=== PATIENT | male | born 1950 | race Caucasian/White ===

== ENCOUNTER → 2017-01-23 12:53 | Outpatient (CLI) | payer MEDICARE ==
[~2017-01-23 12:53] MED LIST: ALDACTONE25 MG PO; BAYER CHEWABLE81 MG PO; CORDARONE200 MG PO; COREG6.25 MG PO; FUROSEMIDE40 MG PO; LIPITOR40 MG PO; OMEGA 3 FISH OI1 CAP PO; ZOFRAN4 MG PO
[2017-03-25 12:13] VITALS: BMI 18.8
== END | disposition home or self-care (01) ==
LOC: D.CT 12:53
DX: M54.6 Pain in thoracic spine (principal)

== ENCOUNTER 2017-03-18 14:38 | Emergency (ER) | payer MEDICARE ==
[2017-03-18 15:45] LABS: BASOPHILS 0.2 % (0-2); EOSINOPHILS 2.1 % (0-7); HEMATOCRIT 43.1 % (42.0-54.0); HEMOGLOBIN 14.9 g/dL (13.5-17.5); IMMATURE GRANULOCYTES 0.2 % (0-5); LYMPHOCYTES 16.6 % (15-50); MCH 32.3 pg (26.0-34.0); MCHC 34.6 g/dL (31.0-37.0); MCV 93.5 fL (80.0-100.0); MEAN PLATELET VOLUME 9.5 fL (7.4-10.4); MONOCYTES 7.7 % (2-11); NEUTROPHILS 73.2 % (40-80); PLATELET COUNT 128 10x3/uL (130-400); RBC 4.61 10x6/uL (4.20-6.10); RDW 12.5 % (11.5-14.5); WBC 8.8 10x3/uL (4.8-10.8)
[2017-03-18 15:58] LABS: ALBUMIN 3.4 g/dL (3.4-5.0); ALKALINE PHOSPHATASE 102 U/L (46-116); ALT (SGPT) 27 U/L (10-68); CALC OSMOLALITY 283 mosm/kg (275-300); CALCIUM 8.8 mg/dL (8.5-10.1); CARBON DIOXIDE 30.7 mmol/L (21.0-32.0); CHLORIDE - SERUM 105 mmol/L (98-107); CREATININE - SERUM 1.4 mg/dL (0.6-1.3); GLUCOSE 108 mg/dL (74-106); POTASSIUM - SERUM 4.3 mmol/L (3.5-5.1); PROTEIN - SERUM 6.1 g/dL (6.4-8.2); SODIUM 141 mmol/L (136-145); UREA NITROGEN 19 mg/dL (7-18); eGFR NON AFRICAN AMERICAN 54 mL/min (90-120)
[2017-03-18 16:09] LABS: CKMB 0.9 U/L (0.0-3.6); CREATINE KINASE 58 UL (21-232); MAGNESIUM - SERUM 2.1 mg/dL (1.8-2.4)
[2017-03-18 16:11] LABS: TROPONIN-I < 0.017 ng/mL (0.000-0.060)
[2017-03-25 12:13] VITALS: BMI 18.8
== END 2017-03-18 16:52 | disposition home or self-care (01) ==
LOC: D.ER 14:38
PROVIDERS: Family Medicine
DX: I49.9 Cardiac arrhythmia, unspecified (principal); Z95.0 Presence of cardiac pacemaker

== ENCOUNTER 2017-03-25 11:48 | Outpatient (CLI) | payer MEDICARE ==
[~2017-03-25] VITALS: Ht 180.3 cm; Wt 61.4 kg
--- NOTE | ~2017-03-25 | HEMODYNAMI ---
PATIENT:INDIA SKY MEDICAL RECORD: [id number] : 50 LOCATION:DTEOFILO ADMISSION DATE: 03/25/17 Generatedon:03/25/201714:51 Patient name: INDIA SKY Patient #: [id number] SSN: : 1950 Date of study: 03/25/2017 Page: Of Hemodynamic Procedure Report Patient Data Patient Demographics Procedure consent was obtained First Name: INDIA Gender: Male Last Name: ASYA : 1950 [facility] Initial: LELA Age: 66 year(s) Patient #: [id number] Race: Unknown Additional ID: [id number] Contact details Address: [address] [place] [address] State: [place] City: [place] Zip code: [address] Past Medical History Allergies Allergen Reaction Date Comments Reported Other allergy 03/25/2017 Ambien Admission Admission Data Admission Date: 03/25/2017 Admission Time: 11:48 Height (in.): 72 BSA: 1.81 (m2) Height (cm.): 182.88 BMI: 18.44 (kg/m2) Weight (lbs.): 136 Weight (kg.): 61.69 Lab Results Lab Result Date: 03/25/2017 Lab Result Time: 0:00 Biochemistry Name Units Result Min Max BUN mg/dl 24 --(----)-* 7 18 Creatinine mg/dl 1.7 --(----)-* 0.6 1.3 Procedure Procedure Types Cath Procedure Diagnostic Procedure LHC LHC w/Coronaries Miscellaneous Procedures Moderate Sedation up to 15 minutes Procedure Description Procedure Date Procedure Date: 03/25/2017 Procedure Start Time: 14:29 Procedure End Time: 14:50 Procedure Staff Name Function Franki Feliciano MD Ordering physician Anmol Rosa MD Performing Physician Alma Finley RT Monitor Katelyn Hitchcock RT Scrub Aminata Simons RN Nurse Chang Lsia RN Computational Biologist Procedure Data Cath Procedure Fluoroscopy Diagnostic fluoroscopy Total fluoroscopy Time: 5.6 time: 5.6 min min Diagnostic fluoroscopy Total fluoroscopy dose: 682 dose: 682 mGy mGy Contrast Material Contrast Material Type Amount (ml) Isovue 300 100 Entry Location Entry Primary Successful Side Size Upsize Upsize Entry Closure Succes sful Closure Location (Fr) 1 (Fr) 2 (Fr) Remarks Device Remarks Femoral Right 5 Fr Exoseal artery Estimated blood loss: 10 ml Diagnostic catheters Device Type Used For End Catheter Placement MULTIPACK JL 4.0 5Fr Procedure catheter DIAGNOSTIC AL 1 5Fr Procedure catheter ([id number]) DIAGNOSTIC AR 2 MOD 5 Fr Procedure catheter ([id number]) MULTIPACK Pigtail 5 Fr Procedure catheter Procedure Complications No complications Procedure Medications Medication Administration Route Dosage 0.9% NaCl I.V. 100 ml/hr Oxygen NC 2 l/min Lidocaine 2% added to field 20 Heparin Flush Bag added to field 2 bags (1000units/500ml NS) Versed I.V. 1 mg Fentanyl I.V. 50 mcg Versed I.V. 1 mg Fentanyl I.V. 50 mcg Versed I.V. 0.5 mg Versed I.V. 1 mg Hemodynamics Rest BSA: 1.81 (m2) O2 Consumption: Estimated: 212.23 (ml/min) O2 Consumption indexed : Estimated:117.25 (ml/min/m) Heart Rate: 73 (bpm) Pressure Samples Time Site Value (mmHg) Purpose Heart Use Rate(bpm) 14:43 LV 115/-1,2 Snapshot 66 14:46 AO 113/63(83) Pullback 66 14:46 LV 118/1,4 Pullback 66 Gradients Valve Time Site 1 Site 2 Mean SEP/DFP Peak To Heart Use (mmHg) (sec/min) Peak Rate (mmHg) (bpm) Aortic 14:46 LV AO 5 13 5 66 118/1,4 113/63(83) Calculations Valve P-P Mean Valve Index Valve Source Name Gradient Area Flow (cm2) Aortic 5 5 5 5 Snapshots Pre Cath Intra NCS Post Cath Vital Signs Time Heart Resp SPO2 NIBP (mmHg) Rhythm Pain Sedation Rate (ipm) (%) Status Level (bpm) 14:09:43 68 12 98 119/84(101) NSR 0 (11) 10(A) , No pain 14:13:47 65 22 97 112/78(99) NSR 0 (11) 10(A) , No pain 14:17:51 62 16 97 115/74(86) NSR 0 (11) 10(A) , No pain 14:21:54 67 16 97 115/76(92) NSR 0 (11) 10(A) , No pain 14:25:58 64 14 97 122/76(91) NSR 0 (11) 10(A) , No pain 14:30:04 66 14 97 133/75(99) NSR 0 (11) 9(A) , No pain 14:34:14 63 15 98 119/73(91) NSR 0 (11) 9(A) , No pain 14:38:20 63 16 97 127/73(92) NSR 0 (11) 9(A) , No pain 14:42:31 66 14 97 117/65(81) NSR 0 (11) 9(A) , No pain 14:46:40 64 16 96 108/65(89) NSR 0 (11) 10(A) , No pain Medications Time Medication Route Dose Verified Delivered Reason Notes Effec tiveness by by 14:09:04 0.9% NaCl I.V. 100 Anmol Aminata used for ml/hr Moe Simons RN procedure 14:09:16 Oxygen NC 2 Anmol Aminata Per l/min Moe Simons RN physician 14:09:26 Lidocaine 2% added 20ml Anmol Anmol used for to vial Moe Rosa MD procedure field 14:09:34 Heparin Flush added 2 Anmol Anmol used for Bag to bags Moe Rosa MD procedure (1000units/500ml field NS) 14:24:31 Versed I.V. 1 mg Anmol Aminata for Moe Simons RN sedation 14:24:42 Fentanyl I.V. 50 Anmol Aminata for josé manuel Simons RN sedation 14:28:41 Versed I.V. 1 mg Anmol Aminata for Moe Simons RN sedation 14:32:33 Fentanyl I.V. 50 Anmol Aminata for josé manuel Simons RN sedation 14:36:23 Versed I.V. 0.5 Anmol Aminata for mg Moe Simons RN sedation 14:43:22 Versed I.V. 1 mg Amnol Aminata for Moe Simons RN sedation Procedure Log Time Note 13:59:05 Patient Height : 72 inches 13:59:11 Patient Weight : 136 lbs 13:59:53 Diagnostic Cath status Elective 13:59:55 Chang Lisa RN sent for patient. Start room use. 13:59:57 Time tracking: Regular hours 14:00:18 Plan of Care:Hemodynamics will remain stable., Cardiac rhythm will remain stable., Comfort level will be maintained., Respiratory function will remain adequate., Patient/ family verbilizes understanding of procedure., Procedure tolerated without complication., Recovers from procedure without complications.. 14:00:40 Patient received from Med II to CCL 2 Alert and oriented. Tansferred to table in Supine position. 14:00:41 Warm blankets applied, and giuseppe hugger turned on for patient comfort. 14:00:41 Correct patient and procedure confirmed by team. 14:00:44 Signed procedure consent form obtained from patient. 14:00:55 H&P Date Dictated: 03/20/2017 Within 30 days and on chart., H&P Addendum completed by physician on day of procedure. (MUST COMPLETE FOR ALL OUTPATIENTS). 14:00:58 Family in waiting room. 14:01:00 Patient NPO since Midnight. 14:01:16 Patient allergic to Other allergyAmbien 14:01:18 Is the patient allergic to Iodine/contrast media? No. 14:01:20 Was the patient premedicated? Yes 14:08:43 Vital chart was started 14:09:04 0.9% NaCl 100 ml/hr I.V. was administered by Aminata Simons RN; used for procedure; 14:09:16 Oxygen 2 l/min NC was administered by Aminata Simons RN; Per physician; 14:09:26 Lidocaine 2% 20ml vial added to field was administered by Anmol Rosa MD; used for procedure; 14:09:34 Heparin Flush Bag (1000units/500ml NS) 2 bags added to field was administered by Anmol Rosa MD; used for procedure; 14:10:53 ECG and BP/O2 sat monitors applied to patient. 14:10:54 Baseline sample Acquired. 14:11:01 Rhythm: paced 14:11:02 Full Disclosure recording started 14:11:32 Is patient on blood thinner?Yes 14:11:35 ACC The patient was administered the following blood thiners within the last 24 hours: ACCAspirin 14:11:38 Patient diabetic? No. 14:11:45 Snore? Yes 14:11:47 Sleep apnea? No 14:12:44 Airway obstruction? No ? 14:12:51 Patient pain scale 0/10 ?. 14:12:59 IV patent on arrival in left forearm with 0.9% NaCl at O. 14:13:25 Lab results completed and on chart. 14:13:29 Right groin area was prepped with chlora-prep and draped in sterile fashion 14:13:30 Alarms reviewed by R. N. 14:13:31 Sharps counted by scrub and verified by R.N. 14:13:32 Physician paged 14:16:34 Lab Result : BUN 24 mg/dl 14:16:34 Lab Result : Creatinine 1.7 mg/dl 14:23:27 Zero performed for pressure channel P1 14:23:43 Zero performed for pressure channel P1 14:23:55 Physician arrived 14:23:55 --------ALL STOP TIME OUT------ 14:23:56 Final Timeout: patient, procedure, and site verified with staff and physician. All members of the team are in agreement. 14:23:58 Right groin site verified by team. 14:24:06 Physical assessment completed. ASA score P 2 - A patient with mild systemic disease as per Anmol Rosa MD. 14:24:11 Sedation plan: IV Moderate Sedation Medication:Versed, Fentanyl 14:24:22 Use device set Femoral Dx 14:24:25 ACIST Syringe (61763) opened to sterile field. 14:24:26 Bag Decanter (2002S) opened to sterile field. 14:24:26 Medline Cath Pack ([id number]) opened to sterile field. 14:24:27 SHEATH 5FR Jay (WOM536) opened to sterile field. 14:24:27 DIAGNOSTIC WIRE .035 260cm J wire (286222) opened to sterile field. 14:24:29 ACIST Hand Control (12818) opened to sterile field. 14:24:29 ACIST Manifold (80949) opened to sterile field. 14:24:30 DIAGNOSTIC Multipack 5Fr catheter set (QK0341) opened to sterile field. 14:24:31 Versed 1 mg I.V. was administered by Aminata Simons RN; for sedation; 14:24:31 Tegaderm 4 x 4 (1626W) opened to sterile field. 14:24:32 PERCUTANEOUS ENTRY 19GA needle opened to sterile field. 14:24:42 Fentanyl 50 mcg I.V. was administered by Aminata Simons RN; for sedation; 14:28:41 Versed 1 mg I.V. was administered by Aminata Simons RN; for sedation; 14:29:16 Procedure started. 14:29:40 Local anesthetic to right femoral artery with Lidocaine 2% by Anmol Rosa MD.INITIAL ACCESS ONLY 14:32:33 Fentanyl 50 mcg I.V. was administered by Aminata Simons RN; for sedation; 14:33:06 A 5 Fr sheath was inserted into the Right Femoral artery 14:33:22 A MULTIPACK JL 4.0 5Fr catheter was advanced over the wire and used for Procedure. 14:33:59 LCA angiography performed. 14:35:13 Catheter removed. 14:36:03 A DIAGNOSTIC AL 1 5Fr catheter (900228F) was advanced over the wire and used for Procedure. 14:36:23 Versed 0.5 mg I.V. was administered by Aminata Simons RN; for sedation; 14:40:14 unable to cannulate the right coronary 14:40:16 Catheter removed. 14:40:53 A DIAGNOSTIC AR 2 MOD 5 Fr catheter ([id number]) was advanced over the wire and used for Procedure. 14:41:49 RCA angiography performed. 14:42:33 Catheter removed. 14:43:22 Versed 1 mg I.V. was administered by Aminata Simons RN; for sedation; 14:43:37 A MULTIPACK Pigtail 5 Fr catheter was advanced over the wire and used for Procedure. 14:44:27 LV gram done using PINZON 14:45:52 EF : 15 % 14:46:11 Catheter removed. 14:46:20 EXOSEAL 5Fr (EX500) opened to sterile field. 14:47:09 Sheath removed intact; hemostasis achieved with Exoseal to the Right Femoral artery. 14:47:23 Procedure ended.(Physican Out) 14:47:37 Fluoroscopy time 05.60 minutes. 14:47:44 Fluoroscopy dose: 682 mGy 14:47:44 Flurop Dose total: 682 14:47:55 Contrast amount:Isovue 300 100ml. 14:48:27 Insertion/operative site no bleeding no hematoma. 14:48:31 Post-op/insertion site Right Femoral artery dressed using a 4 x 4 and Tegaderm. 14:49:09 Post right femoral artery:stable 14:49:11 Post Procedure Pulses reassessed and unchanged 14:49:16 Post-procedure physical assessment completed. ASA score P 2 - A patient with mild systemic disease as per Anmol Rosa MD. 14:49:19 Post procedure rhythm: paced 14:49:22 Estimated blood loss: 10 ml 14:49:37 Post procedure instruction explained to patient.Patient verbalizes understanding. 14:49:47 Procedure and supply charges have been captured, reviewed, submitted and are correct. 14:49:56 Procedure Complication : No complications 14:50:00 Vital chart was stopped 14:50:41 See physician's report for complete and final results. 14:50:47 Report given to Pre/Post Procedure Room. 14:50:51 Patient transfered to Pre/Post Procedure Room with Stretcher. 14:50:54 Procedure ended. 14:50:54 Full Disclosure recording stopped 14:51:14 End room use (Document Last) Device Usage Item Name Manufacture Quantity Catalog Hospital Part Current Minimal Lot# / Number Charge Number Stock Stock Serial# Code ACIST Acist 1 78756 819125 254230 210666 20 Syringe Medical (88272) Systems Inc Bag Decanter Microtek 1 2001S 542850 89052 176128 5 () Medical Inc. Medline Cath Cardinal 1 [id number] 080450 06344 685181 5 Pack Health ([id number]) SHEATH 5FR Terumo 1 MIS659 012770 147809 595170 40 Jay (HHD550) DIAGNOSTIC [place] [facility] 1 227108 543946 959387 978949 30 WIRE .035 260cm J wire (993420) ACIST Hand Acist 1 78742 832580 669837 989091 5 Control Medical (42437) Systems Inc ACIST Acist 1 97935 864391 040067 843950 5 Manifold Medical (99203) Systems Inc DIAGNOSTIC Cardinal 1 MO9985 029754 41335 364024 30 Multipack Health 5Fr catheter set (XN0538) Tegaderm 4 x 3M 1 1626W 221578 154578 169505 5 4 (1626W) PERCUTANEOUS [facility] 1 I84095 831735 657954 5 ENTRY 19GA needle MULTIPACK JL Cardinal 1 594618 5 4.0 5Fr Health catheter DIAGNOSTIC Cardinal 1 [id number] 658181 711241 908619 15 AL 1 5Fr Health catheter ([id number]) DIAGNOSTIC Cardinal 1 [id number] 304625 669671 837652 20 AR 2 MOD 5 Health Fr catheter ([id number]) MULTIPACK Cardinal 1 701448 5 Pigtail 5 Fr Health catheter EXOSEAL 5Fr Cardinal 1 EX500 853047 451803 566286 10 (EX500) Health Signature Audit [place] Stage Time Signature Unsigned Intra-Procedure 03/25/2017 Alma Finley 2:51:39 PM RT(R) Signatures Monitor : Alma Finley Signature : RT Date : Time : [place] [id number] [facility] [place] [address]
[2017-03-25] MEDS ORDERED: ALDACTONE25 MG PO (12:06)
[2017-03-25] MEDS ORDERED: LIPITOR40 MG PO (12:06)
[2017-03-25] MEDS ORDERED: FUROSEMIDE40 MG PO (12:06)
[2017-03-25] MEDS ORDERED: COREG6.25 MG PO (12:06)
[2017-03-25] MEDS ORDERED: BAYER CHEWABLE81 MG PO (12:07)
[2017-03-25] MEDS ORDERED: ZOFRAN4 MG PO (12:10)
[2017-03-25] MEDS ORDERED: CORDARONE200 MG PO (12:10)
[2017-03-25] MEDS ORDERED: OMEGA 3 FISH OI1 CAP PO (12:10)
[2017-03-25 12:13] VITALS: BP 139/90; Ht 180.3 cm; Wt 61.4 kg
[2017-03-25 12:47] LABS: BASOPHILS 0.3 % (0-2); HEMATOCRIT 46.3 % (42.0-54.0); HEMOGLOBIN 16.6 g/dL (13.5-17.5); IMMATURE GRANULOCYTES 0.1 % (0-5); LYMPHOCYTES 16.4 % (15-50); MCH 32.7 pg (26.0-34.0); MCHC 35.9 g/dL (31.0-37.0); MCV 91.3 fL (80.0-100.0); MEAN PLATELET VOLUME 9.7 fL (7.4-10.4); MONOCYTES 10.3 % (2-11); NEUTROPHILS 70.9 % (40-80); RBC 5.07 10x6/uL (4.20-6.10); RDW 12.3 % (11.5-14.5); WBC 7.5 10x3/uL (4.8-10.8)
[2017-03-25 13:06] LABS: PLATELET COUNT 164 10x3/uL (130-400)
[2017-03-25 13:14] LABS: ANION GAP 14.3 mmol/L (8-16); CALCIUM 9.8 mg/dL (8.5-10.1); CARBON DIOXIDE 28.9 mmol/L (21.0-32.0); CREATININE - SERUM 1.7 mg/dL (0.6-1.3); POTASSIUM - SERUM 4.2 mmol/L (3.5-5.1)
== END 2017-03-25 17:30 | disposition home or self-care (01) ==
LOC: D.CATH 11:48
PROVIDERS: Internal Medicine Cardiovascular Disease
DX: I47.2 Ventricular tachycardia (principal); I25.10 Atherosclerotic heart disease of native coronary artery without angina pectoris; I51.9 Heart disease, unspecified; Z01.812 Encounter for preprocedural laboratory examination

== ENCOUNTER → 2017-04-03 12:19 | Outpatient (CLI) | payer MEDICARE ==
[2017-03-25 12:13] VITALS: BMI 18.8
== END | disposition home or self-care (01) ==
LOC: D.RT 12:19
DX: R06.00 Dyspnea, unspecified (principal)

== ENCOUNTER 2017-09-13 18:34 | Emergency (ER) | payer MEDICARE ==
[~2017-09-13] VITALS: Ht 180.3 cm; Wt 61.7 kg
[2017-09-13 18:47] VITALS: Ht 180.3 cm; Wt 61.7 kg
[2017-09-14 02:54] VITALS: BP 131/86
== END 2017-09-14 01:00 | disposition home or self-care (01) ==
LOC: D.ER 18:34
DX: T82.897A Other specified complication of cardiac prosthetic devices, implants and grafts, initial encounter (principal)

== ENCOUNTER → 2018-06-26 08:31 | Outpatient (CLI) | payer MEDICARE | END | disposition home or self-care (01) | LOC: D.HCCARDIO 08:31 | DX: I42.9 Cardiomyopathy, unspecified (principal) ==

== ENCOUNTER → 2018-07-14 14:43 | Outpatient (CLI) | payer MEDICARE ==
[2017-09-13 18:47] VITALS: BMI 18.8
== END | disposition home or self-care (01) ==
LOC: D.RAD 14:43
PROVIDERS: ATTEND Family Medicine
DX: R07.9 Chest pain, unspecified (principal)

== ENCOUNTER 2019-01-14 09:13 | Outpatient (CLI) | payer MEDICARE ==
[~2019-01-14] VITALS: Ht 180.3 cm; Wt 61.8 kg
--- NOTE | ~2019-01-14 | HEMODYNAMI ---
PATIENT:INDIA SKY MEDICAL RECORD: [id number] : 50 LOCATION:DTEOFILO ADMISSION DATE: 01/14/19 Generatedon:01/14/201913:07 Patient name: INDIA SKY Patient #: [id number] SSN: : 1950 Date of study: 01/14/2019 Page: Of Hemodynamic Procedure Report Patient Data Patient Demographics Procedure consent was obtained First Name: INDIA Gender: Male Last Name: ASYA : 1950 Middle Initial: LELA Age: 68 year(s) Patient #: [id number] Race: Unknown Additional ID: [id number] Contact details [address]: [address] [place] [address] State: [place] City: [place] Zip code: [address] Past Medical History Allergies Allergen Reaction Date Comments Reported Other [facility] Admission Data Admission Date: 01/14/2019 Admission Time: 9:13 Procedure Procedure Types Cath Procedure Diagnostic Procedure Cardioversion External Procedure Description Procedure Date Procedure Date: 01/14/2019 Procedure Start Time: 12:55 Procedure End Time: 13:04 Procedure Staff Name Function Hakan Garcia MD Performing Physician Saúl Cortes CRNA Additional personnel Ta Mcdaniel RT Monitor Annie Ely RN Nurse Procedure Data Cath Procedure Fluoroscopy Diagnostic fluoroscopy Total fluoroscopy Time: 0 time: 0 min min Diagnostic fluoroscopy Total fluoroscopy dose: 0 dose: 0 mGy mGy Estimated blood loss: 0 ml Procedure Complications No complications Procedure Medications Medication Administration Route Dosage 0.9% NaCl I.V. 100 ml/hr Oxygen etCO2 Nasal cannula 2 l/min Refer to Anesthesia Notes for Sedation Medications Hemodynamics Rest Pre Cath Intra NCS Post Cath Vital Signs Time Heart Resp SPO2 etCO2 NIBP (mmHg) Rhythm Pain Sedation Rate (ipm) (%) (mmHg) Status Level (bpm) 12:43:24 126 28 98 17.2 104/81(94) ST 0 (11) 10(A) , No pain 12:48:11 142 18 100 17.9 107/83(93) ST 0 (11) 10(A) , No pain 12:52:11 115 17 100 17.2 104/77(99) ST 0 (11) 10(A) , No pain 12:56:49 78 24 100 16.4 165/104(126) Paced 0 (11) 5(A) , No pain 13:01:05 81 23 97 23.9 138/87(96) Paced 0 (11) 5(A) , No pain 13:02:13 75 18 100 25.4 147/91(132) Paced 0 (11) 10(A) , No pain Medications Time Medication Route Dose Verified Delivered Reason Notes Effective ness by by 12:53:21 0.9% NaCl I.V. 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 Start room use. 12:34:29 Time tracking: Regular hours (M-F 7:00 - 5:00) 12:34:33 Plan of Care:Hemodynamics will remain stable., Cardiac rhythm will remain stable., Comfort level will be maintained., Respiratory function will remain adequate., Patient/ family verbilizes understanding of procedure., Procedure tolerated without complication., Recovers from procedure without complications.. 12:38:02 Patient arrived from ED to CCL 3. Patient remains on bed/stretcher for procedure. 12:38:07 Signed procedure consent form obtained from patient. 12:38:08 Warm blankets applied, and giuseppe hugger turned on for patient comfort. 12:38:08 Correct patient and procedure confirmed by team. 12:38:09 ECG and BP/O2 sat monitors applied to patient. 12:38:24 H&P Date Dictated: 01/14/2019 Within 30 days and on chart.. 12:38:25 Pre-procedure instructions explained to patient. 12:38:26 Pre-op teaching completed and patient verbalized understanding. 12:38:27 Family in patients room. 12:41:44 Patient NPO since Midnight. 12:41:49 Is the patient allergic to Iodine/contrast media? No. 12:41:57 Is patient on blood thinner?No 12:42:01 ACC The patient was administered the following blood thiners within the last 24 hours: None 12:42:06 Patient diabetic? No. 12:42:09 Previous problem with sedation/anesthesia? No ? 12:42:11 Snore? No 12:42:12 Sleep apnea? No 12:42:13 Deviated septum? No 12:42:14 Opens mouth fully? Yes 12:42:15 Sticks out tongue? Yes 12:42:16 Airway obstruction? No ? 12:42:18 Dentures? No ? 12:42:30 Vital chart was started 12:42:41 Rhythm: ventricular tachycardia 12:42:43 Full Disclosure recording started 12:42:49 Patient pain scale 0/10 ?. 12:42:53 IV patent on arrival in right forearm with 0.9% NaCl at O. 12:42:55 Lab results completed and on chart. 12:42:58 Alarms reviewed by Janeth Grant 12:43:51 Quick combo pads placed on patients chest and back. 12:44:00 Quick Combo opened to sterile field. 12:50:03 Hakan Garcia MD present and monitoring patient for TIVA. 12:53:07 Pt arrived to in SVT. 12:53:21 0.9% NaCl 100 ml/hr I.V. was administered by Annie Ely RN; used for procedure; Verbal order read back and verified. 12:53:27 Oxygen 2 l/min etCO2 Nasal cannula was administered by Annie Ely RN; used for procedure; Verbal order read back and verified. 12:53:36 Refer to Anesthesia Notes for Sedation Medications was administered by Saúl Cortes CRNA; for sedation; Verbal order read back and verified. 12:53:59 --------ALL STOP TIME OUT------ 12:54:01 Final Timeout: patient, procedure, and site verified with staff and physician. All members of the team are in agreement. 12:54:09 Fire Safety Assessment: E--There are other possible contributors. 12:54:16 Physical assessment completed. ASA score P 3 - A patient with severe systemic disease as per Hakan Garcia MD. 12:54:20 Sedation plan: TIVA Medication:Propofol 12:55:04 Procedure started. 12:55:07 Defibrillator synced and charged to 275 Joules. 12:55:16 Shock delivered. 12:55:40 Unsuccessful cardioversion. 12:55:43 Defibrillator synced and charged to 360 Joules. 12:56:12 Shock delivered. 12:57:00 Patient cardioverted to sinus rhythm . 12:57:04 Procedure ended.(Physican Out) 13:04:08 Fluoroscopy time 00.00 minutes. 13:04:09 Fluoroscopy dose: 0 mGy 13:04:09 Flurop Dose total: 0 13:04:11 Dose Area Product 0 mGy/cm. 13:04:17 Post-procedure physical assessment completed. ASA score P 3 - A patient with severe systemic disease as per Hakan Garcia MD. 13:04:20 Post procedure rhythm: sinus rhythm 13:04:22 Estimated blood loss: 0 ml 13:04:26 Post procedure instruction explained to patient.Patient verbalizes understanding. 13:04:27 Patient needs reinforcement of post procedure teaching. 13:04:33 Procedure and supply charges have been captured, reviewed, submitted and are correct. 13:04:35 Procedure Complication : No complications 13:04:45 Vital chart was stopped 13:04:47 Operative report dictated upon procedure completion. 13:04:48 See physician's report for complete and final results. 13:04:50 Report given to Pre/Post Procedure Room. 13:04:55 Patient transfered to Pre/Post Procedure Room with Stretcher. 13:04:57 Procedure ended. 13:04:57 Full Disclosure recording stopped 13:05:07 End room use (Document Last) 13:06:56 End room use (Document Last) 13:07:29 End room use (Document Last) Device Usage Item Manufacture Quantity Catalog Hospital Part Current Minimal Lot# / Name Number Charge Number Stock Stock Seri al# Code Nuevo Midstream 1 [id number] 5 Combo Signature Audit [place] Stage Time Signature Unsigned Intra-Procedure 01/14/2019 Ta Mcdaniel 1:06:56 PM RT(R) Intra-Procedure 01/14/2019 Annie Ely 1:07:29 PM RN Intra-Procedure 01/14/2019 Hakan Garcia 1:07:[address] [address]
[2019-01-14] MEDS ORDERED: FUROSEMIDE40 MG PO (09:23)
[2019-01-14] MEDS ORDERED: MEXITIL 150 MG150 MG PO (09:24)
[2019-01-14] MEDS ORDERED: ZANAFLEX4 MG PO (09:45)
[2019-01-14 10:01] LABS: BASOPHILS 0.2 % (0-2); EOSINOPHILS 0.4 % (0-7); HEMATOCRIT 47.2 % (42.0-54.0); HEMOGLOBIN 16.4 g/dL (13.5-17.5); IMMATURE GRANULOCYTES 0.3 % (0-5); LYMPHOCYTES 9.7 % (15-50); MCH 32.8 pg (26.0-34.0); MCHC 34.7 g/dL (31.0-37.0); MCV 94.4 fL (80.0-100.0); MEAN PLATELET VOLUME 10.1 fL (7.4-10.4); MONOCYTES 8.4 % (2-11); PLATELET COUNT 182 10x3/uL (130-400); RDW 13.4 % (11.5-14.5); WBC 18.5 10x3/uL (4.8-10.8)
[2019-01-14 10:20] LABS: APTT 45.4 SECONDS (22.8-39.4); INR 1.16 (0.85-1.17); PROTIME 14.3 SECONDS (11.6-15.0)
[2019-01-14 10:28] VITALS: Ht 180.3 cm; Wt 61.8 kg
[2019-01-14 10:28] LABS: CALC OSMOLALITY 293 mosm/kg (275-300); CALCIUM 8.9 mg/dL (8.5-10.1); CARBON DIOXIDE 25.9 mmol/L (21.0-32.0); CHLORIDE - SERUM 106 mmol/L (98-107); CREATININE - SERUM 1.6 mg/dL (0.6-1.3); GLUCOSE 126 mg/dL (74-106); POTASSIUM - SERUM 4.5 mmol/L (3.5-5.1); SODIUM 144 mmol/L (136-145); UREA NITROGEN 26 mg/dL (7-18); eGFR NON AFRICAN AMERICAN 46 mL/min (90-120)
[2019-01-14 10:51] LABS: ALBUMIN 3.5 g/dL (3.4-5.0); ALKALINE PHOSPHATASE 114 U/L (46-116); ALT (SGPT) 37 U/L (10-68); BILIRUBIN - TOTAL 0.57 mg/dL (0.2-1.3); CKMB 1.7 U/L (0.0-3.6); CREATINE KINASE 85 UL (21-232); PROTEIN - SERUM 6.3 g/dL (6.4-8.2)
--- NOTE | 2019-01-14 12:57 | CN ---
PATIENT NAME:INDIA ALLEN MEDICAL RECORD: [id number] : 50 LOCATION:D.CAT ADMIT DATE: ACCOUNT: [id number] CONSULTING PHYSICIAN: MARCELA KRUGER MD REFERRING PHYSICIAN: MARCELA KRUGER MD DATE OF CONSULTATION: 01/14/2019 CARDIOLOGY CONSULTATION DIAGNOSES: 1. Atrial flutter. 2. Cardiomyopathy. 3. Coronary artery disease. 4. Hypertension. 5. Hyperlipidemia. 6. History of ventricular tachycardia. 7. History of atrial fibrillation. 8. Palpitations and shortness of breath. HISTORY OF PRESENT ILLNESS: Mr. Allen is well known to us. He has a nonischemic cardiomyopathy, minimal coronary artery disease who presents with shortness of breath and palpitations, found to be in a tachyarrhythmia, rates of 140. Last week, he was in ventricular tachycardia. His medications have been adjusted. He is currently on carvedilol 6.25 b.i.d. and mexiletine 150 mg t.i.d. We interrogated his ICD. He has not had any ventricular arrhythmias. He is in atrial flutter with 2:1 conduction. PHYSICAL EXAMINATION: CONSTITUTIONAL/GENERAL APPEARANCE: Well nourished, well developed, appears stated age. EYES: Lids and conjunctivae noninjected. No discharge. No pallor. ENT: Lips within normal limit. No cyanosis. No pallor. NECK: Carotid arteries, bilateral normal upstroke. No bruits. No thrills. No jugular venous pressure or distention. CERVICAL LYMPH NODES: Nontender. Nonenlarged. THYROID: Not enlarged. No nodules. CARDIOVASCULAR: Precordial exam, nondisplaced. No heaves or pericardial thrills. Rate and rhythm, regular. Heart sounds, normal S1, normal S2. No S3, no gallop, no rub. Systolic murmur, not heard. Diastolic murmur, not heard. RESPIRATORY: Respiratory effort, unlabored. Normal curvature. No thoracic deformity. No chest wall tenderness. Percussion, resonant. Auscultation, clear. No wheezes, no rales, no rhonchi. ABDOMEN: Soft, nondistended, nontender. No abdominal pain, no vomiting and normal appetite. MUSCULOSKELETAL: No joint tenderness, normal gait, normal tone. SKIN: Warm and dry. OVERALL IMPRESSION: Atrial flutter with 2:1 conduction. At this time, due to the fact that he is on mexiletine, we will not try ibutilide. We will perform DC cardioversion and anticoagulation. TRANSINT:[id number] Voice Confirmation ID: [id number] DOCUMENT ID: [id number] CONSULT REPORT [id number] INDIA ALLEN, MARCELA WHITE at 1257 CC: [id number] DICTATION DATE: 01/14/19 1027 KICK BOXER: 01/14/19 1049 [id number] [place] [address]
--- NOTE | 2019-01-14 13:17 | NUR ---
PT RECEIVED VIA STRETCHER FROM CONCRETE CARPENTER POST SUCCESSFUL CARDIOVERSION. PT AWAKE AND ALERT, DENIES PAIN OR DISCOMFORT. IV PATENT INFUSING VIA L ARM PER GRAVITY. PT PLACED ON CARDIAC MONITORS AND O2 ON VIA NC AT 2L. HR PACED AT 72, BP 121/70, RR 14, SAT 99. CALL LIGHT IN REACH, FAMILY AT BEDSIDE.
[2019-01-14 13:19] VITALS: BP 99/71
--- NOTE | 2019-01-14 14:00 | NUR ---
DISCHARGE INSTRUCTIONS REVIEWED W PT AND DAUGHTER, BOTH VERBALIZED UNDERSTANDING. HR REMAINS PACED AT 72, BP 112/69. CARDIAC MONITORS REMOVED AND PT UP TO DRESS FOR DISCHARGE
--- NOTE | 2019-01-14 14:10 | NUR ---
PT DISCHARGED VIA WC TO DAUGHTER WAITING IN PRIVATE VEHICLE. PT HAD ALL BELONGINGS AND DISCHARGE PAPERS.
--- NOTE | 2019-01-21 14:07 | OP ---
PATIENT NAME: INDIA SKY MEDICAL RECORD: [id number] :50 LOCATION:D.CAT ADMISSION DATE: SURGEON: MARCELA KRUGER MD DATE OF OPERATION: 01/14/2019 PROCEDURE: 1. DC cardioversion. 2. ICD interrogation. DESCRIPTION OF PROCEDURE: IV conscious sedation was per anesthesia. He received 2 shocks, one at 275 and one at 360. IMPRESSION: Successful DC cardioversion from atrial flutter to sinus rhythm confirmed with ICD interrogation. TRANSINT:[id number] Voice Confirmation ID: [id number] DOCUMENT ID: [id number] MARCELA KRUGER MD at 1407 CC: [id number] DICTATION DATE: 01/14/19 1258 HAZARDOUS MATERIALS HANDLER: 01/14/19 1302 DEP CLI 01/14/19 [address] [id number] [place] [address]
== END 2019-01-14 14:05 | disposition home or self-care (01) ==
LOC: D.CATH 09:13 → D.ER 09:13 → EDSTATUS 10:42 → D.CLR 13:05 → D.CATH 14:05
PROVIDERS: Family Medicine; ATTEND Internal Medicine Interventional Cardiology
DX: I48.91 Unspecified atrial fibrillation (principal); I42.9 Cardiomyopathy, unspecified; I25.10 Atherosclerotic heart disease of native coronary artery without angina pectoris; I11.0 Hypertensive heart disease with heart failure; E78.5 Hyperlipidemia, unspecified

== ENCOUNTER 2019-08-31 06:19 | Day surgery (SDC) | payer MEDICARE ==
[~2019-08-31] VITALS: Ht 182.9 cm; Wt 69.4 kg
--- NOTE | ~2019-08-31 | OP ---
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 PROCEDURE: Microsuspension laryngoscopy and excision of right true vocal cord lesion. SURGEON: Kenneth Carrillo MD ANESTHESIA: General orotracheal. BLOOD LOSS: Less than 1 cc. SPECIMENS: Right true vocal cord lesion. COMPLICATIONS: None. DISPOSITION: Recovery stable. PROCEDURE NOTE: He was brought to the operating room and placed in supine position, sedated and intubated by anesthesia. Table was turned 90 degrees. Head drape was applied. He was positioned for laryngoscopy. Using a Kleindamianer Harjeet. laryngoscope, the plastic upper tooth guard was placed. The hypopharynx, lateral pharyngeal abreu, base of tongue, vallecula, hypopharynx, piriforms, postcricoid area were all examined unremarkable. Larynx was examined. He had very easy to expose lesion, right anterior true cord, probably started about 3-4 mm behind the anterior commissure about 6-7 mm in length along the cord almost bilobed friable and is already bleeding just from the intubation. The laryngoscope was positioned and he was suspended and the microscope was brought in to examine the lesion. The rest of the cords looked good. The lesion was grasped with upbiting cup forceps, 2 mm and the upbiting scissors were used to make a cut on the superior surface of the cord along the mucosa just taking a tiny amount of normal mucosa with that, and then once that was able to be more medialized then the posterior cut was made removing the lesion completely. This was sent in formalin for path. Then, the lesion was reexamined. Suction was used and was fairly clean and smooth, no visible residual portion of the lesion. Because of his cardiac history did not wait and do a frozen to do anything different than suction out the area, put Afrin pledget between the anterior cords removed the laryngoscope and the plastic tooth guard. The Afrin pledget was removed before he was extubated. He was awakened and transported to recovery in good condition. No complications. TRANSINT:[id number] Voice Confirmation ID: [id number] DOCUMENT ID: [id number] OPERATIVE REPORT [id number] INDIA SKY ERIC MD CC: [id number] DICTATION DATE: 08/31/19 1016 HAM MARKER: [id number]/31/[id number] [facility] 08/31/19 [place] [id number] [place] [id number]
--- NOTE | ~2019-08-31 | HP ---
PATIENT: INDIA ALLEN MEDICAL RECORD: [id number] ACCOUNT: [id number] [facility] 50 ADMISSION DATE: 08/31/19 PCP: RYNE STONER DO HISTORY AND PHYSICAL EXAMINATION HISTORY OF PRESENT ILLNESS: Mr. Allen is a 69-year-old male with hoarseness and a right true vocal cord mass that is enlarging. He is being admitted for microsuspension laryngoscopy and excision of a true vocal cord lesion. PAST MEDICAL HISTORY: Includes hypertension, nonischemic cardiomyopathy, pacemaker. PAST SURGICAL HISTORY: Includes cholecystectomy, pacemaker implanted, last surgery for that was 2016. Cardiac catheterization in 2018. SOCIAL HISTORY: He has a history of smoking, quit 12 years ago. CURRENT MEDICATIONS: Include carvedilol, atorvastatin, Lasix, spironolactone, aspirin, mexiletine, digoxin, Zofran, Ventolin inhaler p.r.n. ALLERGIES: TO AMBIEN. He was seen by Dr. Rosa last week in there office, said he was okay for surgery. PHYSICAL EXAMINATION: GENERAL: He is healthy appearing. He is moderate to severely hoarse. FACE: Normal, symmetric, no lesions. EYES: Sclerae and conjunctivae are normal. EARS: Normal. NOSE: No mass, polyps or drainage. ORAL CAVITY AND OROPHARYNX: Tongue protrudes in midline. Pharynx normal. NECK: No masses, no adenopathy. CHEST: Clear. CARDIOVASCULAR: Regular rate and rhythm, no murmur. EXTREMITIES: Normal. Laryngoscopy through the nose after decongestion reveals a right true vocal cord mass has a sharp angulation and enlarged from the previous time I saw him a couple months ago, it was initially more smooth and cystic, but does not have particular dysplastic or papillomatous surface. IMPRESSION: 1. Right vocal cord mass. 2. Hoarseness. PLAN: Microsuspension laryngoscopy, excision of right true vocal cord lesion. TRANSINT:[id number] Voice Confirmation ID: [id number] DOCUMENT ID: [id number] HISTORY AND PHYSICAL [id number] INDIA ALLEN KENNETH GREER MD CC: [id number] DICTATION DATE: 08/28/19 1150 CABLE LAYER: 08/28/19 1558 [place] [id number] [place] [address]
[~2019-08-31 06:19] MED LIST changes: +LANOXIN125 MCG PO; +MEXITIL 150 MG150 MG PO; +PACERONE200 MG PO; +ZANAFLEX4 MG PO
[2019-08-31 06:44] LABS: HEMATOCRIT 45.4 % (42.0-54.0); HEMOGLOBIN 15.1 g/dL (13.5-17.5); MCH 31.7 pg (26.0-34.0); MCHC 33.3 g/dL (31.0-37.0); MCV 95.4 fL (80.0-100.0); MEAN PLATELET VOLUME 9.1 fL (7.4-10.4); RBC 4.76 10x6/uL (4.20-6.10); RDW 13.4 % (11.5-14.5); WBC 8.5 10x3/uL (4.8-10.8)
[2019-08-31 07:01] LABS: ANION GAP 10.3 mmol/L (8-16); CALCIUM 8.9 mg/dL (8.5-10.1); CARBON DIOXIDE 29.8 mmol/L (21.0-32.0); CREATININE - SERUM 1.7 mg/dL (0.6-1.3); POTASSIUM - SERUM 4.1 mmol/L (3.5-5.1)
[2019-08-31 07:18] VITALS: BP 141/88; Ht 182.9 cm; Wt 69.4 kg
--- NOTE | 2019-08-31 10:43 | NUR ---
DC INSTRUCTIONS GIVEN TO PT. STATES UNDERSTANDING. DC'D IV CATH FULLY INTACT. WILL DC SHORTLY.
--- NOTE | 2019-08-31 10:59 | NUR ---
PT LEFT UNIT VIA WC AT 1056
== END 2019-08-31 10:56 | disposition home or self-care (01) ==
LOC: D.OPS 06:19
PROVIDERS: Anesthesiology; ATTEND Otolaryngology
DX: R49.0 Dysphonia (principal); J38.3 Other diseases of vocal cords; I10 Essential (primary) hypertension; I42.8 Other cardiomyopathies; Z95.0 Presence of cardiac pacemaker

== ENCOUNTER → 2020-08-03 09:39 | Outpatient (CLI) | payer MEDICARE ==
[2019-08-31 07:18] VITALS: BMI 20.8
== END | disposition home or self-care (01) ==
LOC: D.CT 09:39
PROVIDERS: ATTEND Clinical Nurse Specialist Family Health
DX: M25.532 Pain in left wrist (principal)